=== PATIENT | male | born 1980 | race Caucasian/White ===

== ENCOUNTER 2022-07-22 05:40 | Observation (INO) ==
[2022-07-22] MEDS ORDERED: ONDANSETRON 4 MG/2 ML VIAL IV PRN (06:35)
[2022-07-22] MEDS ORDERED: HYDROmorphone 1 MG/1 ML SYRINGE IV PRN (06:35)
[2022-07-22] MEDS ORDERED: LACTATED RINGERS 1,000 ML IV SCH (07:00)
[2022-07-22 07:44] LABS: Alanine Aminotransferase 46 U/L (16-61); Albumin 3.4 G/DL (3.4-5.0); Alkaline Phosphatase 73 U/L (45-117); Aspartate Amino Transferase 25 U/L (0-37); Bilirubin,Direct < 0.100 MG/DL (0.0-0.20); Bilirubin,Indirect 0.5 MG/DL (0.0-1.0); Total Protein 6.8 G/DL (6.4-8.2)
[2022-07-22] MEDS ORDERED: LIDOCAINE 1%/EPI INJ 20 ML VIAL ONE (08:50)
[2022-07-22] MEDS ORDERED: BUPIVACAINE MPF 0.25% 10 ML VIAL ONE (08:50)
[2022-07-22] MEDS ORDERED: ONDANSETRON 4 MG/2 ML VIAL ONE (08:51)
[2022-07-22] MEDS ORDERED: SEVOFLURANE 1 UNIT/15 MINUTE INH ONE ×3 (08:51→10:35)
[2022-07-22] MEDS ORDERED: ROCURONIUM 50 MG/5 ML VIAL IV ONE (08:51)
[2022-07-22] MEDS ORDERED: fentaNYL 100 MCG/2 ML VIAL ONE (08:51)
[2022-07-22] MEDS ORDERED: DEXAMETHASONE 4 MG/1 ML VIAL ONE ×2 (08:51→10:36)
[2022-07-22] MEDS ORDERED: propofoL 200 MG/20 ML VIAL IV ONE (08:51)
[2022-07-22] MEDS ORDERED: LIDOCAINE 2% 5 ML VIAL ONE (08:51)
[2022-07-22] MEDS ORDERED: MIDAZOLAM 2 MG/2 ML VIAL ONE (08:52)
[2022-07-22] MEDS ORDERED: KETOROLAC 30 MG/1 ML VIAL ONE (08:53)
[2022-07-22] MEDS ORDERED: ACETAMINOPHEN INJ 1,000 MG/100 ML VIAL IV ONE (08:53)
[2022-07-22] MEDS ORDERED: FAMOTIDINE 20 MG/2 ML VIAL IV ONE (09:26)
[2022-07-22] MEDS ORDERED: ceFAZolin 1,000 MG VIAL ONE ×2 (09:37)
[2022-07-22] MEDS ORDERED: GLYCOPYRROLATE 0.4 MG/2 ML VIAL ONE (10:05)
[2022-07-22] MEDS ORDERED: LACTATED RINGERS 1,000 ML IV ONE (10:05)
[2022-07-22] MEDS ORDERED: NEOSTIGMINE 10 MG/10 ML VIAL ONE (10:06)
[2022-07-22] MEDS ORDERED: PHENYLEPHRINE 1 MG/10 ML SYRINGE IV ONE (10:36)
[2022-07-22 13:09] VITALS: BP 116/68
== END 2022-07-22 13:59 | disposition home or self-care (01) ==
LOC: EDBD → EDUNIT# 05:40 → N.ED 05:40 → N.EDINP 05:40 → EDBD 05:40 → N.3E 09:11
PROVIDERS: ADMIT Surgery; ATTEND Surgery
PROC: LAPCHOL (2022-07-22 09:05)